=== PATIENT | male | born 1945 | race Caucasian/White ===

== ENCOUNTER 2016-10-10 16:40 | Observation (INO) | payer MEDICARE ==
[2016-10-10] MEDS ORDERED: HYDROmorphone 1 MG/ML SYRINGE IVP STA ×2 (18:30→21:13)
[2016-10-10] MEDS ORDERED: SODIUM CHLORIDE 0.9% 1,000 ML IV ONE ×2 (18:30→21:13)
[2016-10-10] MEDS ORDERED: ONDANSETRON 4 MG/2 ML VIAL IVP STA ×2 (18:30→21:13)
--- NOTE | 2016-10-10 18:30 | ED Physician Documentation ---
PD HPI ABD PAIN - Stated complaint Stated Complaint: ABD PAIN - Chief complaint Chief Complaint: Abd Pain - History obtained from History obtained from: Patient - History of Present Illness Timing - onset: Today Timing - duration: Days (1) Timing - details: Gradual onset, Still present Quality: Cramping, Aching, Fullness/distended Location: Periumbilical, Other (upper abd) Radiation: No: Chest, Lower back, Left flank, Right flank Improved by: Laying still Worsened by: Eating, Moving, Palpation. No: Breathing Associated symptoms: Fever, Nausea. No: Vomiting, Diarrhea, Dysuria Similar symptoms before: Has not had sx before Recently seen: Not recently seen Review of Systems Constitutional: reports: Fever (this afternoon), Chills Nose: denies: Rhinorrhea / runny nose, Congestion Throat: denies: Sore throat Cardiac: reports: Pedal edema (chronic mild). denies: Chest pain / pressure, Palpitations, Calf pain Respiratory: denies: Dyspnea, Cough, Wheezing GI: reports: Abdominal Pain, Nausea. denies: Vomiting, Constipation, Diarrhea : denies: Dysuria, Frequency Skin: denies: Rash, Lesions Neurologic: reports: Generalized weakness. denies: Focal weakness, Numbness Endocrine: denies: Weight loss, Easy bruising / bleeding Immunocompromised: denies: Immunocompromised PD PAST MEDICAL HISTORY - Past Medical History Cardiovascular: None, Hypertension Respiratory: None Neuro: None Endocrine/Autoimmune: None GI: Other (no diverticulitis) - Past Surgical History General: Cholecystectomy, Appendectomy - Present Medications Home Medications: Ambulatory Orders Medication Instructions Recorded Confirmed Aspirin 81 mg DAILY 10/10/16 10/10/16 Atorvastatin [Lipitor] 10 mg DAILY 10/10/16 10/10/16 Clonazepam 1 - 2 tab QPM 10/10/16 10/10/16 Fluoxetine HCl 40 mg DAILY 10/10/16 10/10/16 Primidone 250 mg BID 10/10/16 10/10/16 Ropinirole HCl 1 mg QPM 10/10/16 10/10/16 Valsartan/Hydrochlorothiazide 1 tab DAILY 10/10/16 10/10/16 [Valsartan-Hctz 160-25 mg Tab] amLODIPine [Norvasc] 10 mg DAILY 10/10/16 10/10/16 buPROPion [Wellbutrin Sr] 150 mg BID 10/10/16 10/10/16 - Allergies Allergies/Adverse Reactions: Allergies Allergy/AdvReac Type Severity Reaction Status Date / Time No Known Drug Allergies Allergy Verified 10/10/16 18:51 PD ED PE NORMAL - Vitals Vital signs reviewed: Yes - General General: Alert and oriented X 3, Well developed/nourished, Other (appears uncomfortable, with distended abdomen) - HEENT HEENT: PERRL (nonicteric), Ears normal, Moist mucous membranes, Pharynx benign - Neck Neck: Supple, no meningeal sign, No adenopathy - Cardiac Cardiac: RRR, No murmur - Respiratory Respiratory: Clear bilaterally - Abdomen Abdomen: No organomegaly, Other (distended abdomen with general tenderness upper abdomen middle most but also left and right. Lower abd not tender. Bowel sounds hyperactive. No shifting dullness. ) - Male Male : Deferred - Rectal Rectal: Deferred - Back Back: No CVA TTP - Derm Derm: Normal color, Warm and dry - Extremities Extremities: No tenderness to palpate, Normal ROM s pain - Neuro Neuro: Alert and oriented X 3, No motor deficit, Normal speech - Psych Psych: Normal mood, Normal affect Results - Vitals Vitals: Vital Signs - 24 hr 10/10/16 10/10/16 10/10/16 16:53 19:19 21:09 Temperature 39.3 C H Heart Rate 81 64 62 Respiratory 18 18 18 Rate Blood Pressure 151/76 H 135/66 H 139/56 H O2 Saturation 92 93 95 10/10/16 21:15 Temperature 37.1 C Heart Rate Respiratory Rate Blood Pressure O2 Saturation Oxygen O2 Source Room air - Labs Labs: Laboratory Tests 10/10/16 10/10/16 10/10/16 18:45 18:45 19:15 WBC 7.0 RBC 4.35 L Hgb 13.1 L Hct 38.3 L MCV 88.1 MCH 30.3 MCHC 34.3 RDW 14.0 Plt Count 172 MPV 7.7 Neut # 5.3 Lymph # 0.9 L [place] # 0.8 Eos # 0.0 Baso # 0.0 Absolute Nucleated RBC 0.02 Nucleated RBCs 0.2 Sodium 138 Potassium 3.4 L Chloride 101 Carbon Dioxide 27 Anion Gap 10.0 BUN 19 Creatinine 1.0 Estimated GFR (MDRD) 73 L Glucose 101 H Lactic Acid 1.2 Calcium 8.3 L Magnesium 1.6 L Total Bilirubin 0.5 AST 21 ALT 35 Alkaline Phosphatase 45 Total Protein 7.2 Albumin 3.7 Globulin 3.5 Albumin/Globulin Ratio 1.1 Lipase 21 L Urine Color Urine Clarity Urine pH Ur Specific [place] Urine Protein Urine Glucose (UA) Urine Ketones Urine Occult Blood Urine Nitrite Urine Bilirubin Urine Urobilinogen Ur Leukocyte Esterase Ur Microscopic Review Urine Culture Comments 10/10/16 19:30 WBC RBC Hgb Hct MCV MCH MCHC RDW Plt Count MPV Neut # Lymph # [place] # Eos # Baso # Absolute Nucleated RBC Nucleated RBCs Sodium Potassium Chloride Carbon Dioxide Anion Gap BUN Creatinine Estimated GFR (MDRD) Glucose Lactic Acid Calcium Magnesium Total Bilirubin AST ALT Alkaline Phosphatase Total Protein Albumin Globulin Albumin/Globulin Ratio Lipase Urine Color YELLOW Urine Clarity CLEAR Urine pH 6.0 Ur Specific [place] 1.025 Urine Protein TRACE Urine Glucose (UA) NEGATIVE Urine Ketones NEGATIVE Urine Occult Blood TRACE-LYSE Urine Nitrite NEGATIVE Urine Bilirubin NEGATIVE Urine Urobilinogen 0.2 (NORMAL) Ur Leukocyte Esterase NEGATIVE Ur Microscopic Review NOT INDICATED Urine Culture Comments NOT INDICATED - Rads (name of study) abd CT Radiology: Prelim report reviewed (nonspecific A/F levels. Renal mass noted.), EMP read contemporaneously (presume the renal mass is incidental to current symptoms, but will need further evaluation. ) PD MEDICAL DECISION MAKING - ED course Complexity details: reviewed results, re-evaluated patient (still having upper abd pain, tenderness, distension. Not obvious cause. ), considered differential (symptoms seem c/w bowel obstruction. Will give IV fluids/meds, adn get CT. Consider perforated viscus, ischemic bowel, volvulus, etc. ), d/w patient, d/w network systems consultant (Dr. Mccoy, who will see patient in ED and collaborate with Dr. Damian, hospitlaist.) Departure - Departure Disposition: ED Place in Observation Clinical Impression: Abdominal pain Qualifiers: Abdominal location: upper abdomen, unspecified Qualified Code(s): R10.10 - Upper abdominal pain, unspecified Fever Qualifiers: Fever type: unspecified Qualified Code(s): R50.9 - Fever, unspecified Condition: Stable Record reviewed to determine appropriate education?: Yes Discharge Date/Time: 10/10/16 22:13
[2016-10-10] MEDS ORDERED: ACETAMINOPHEN 1,000 MG/100 ML 100 ML IV STA (18:32)
[2016-10-10] MEDS ORDERED: ACETAMINOPHEN 1,000 MG/100 ML 100 ML IV ONE (18:53)
[2016-10-10] MEDS ORDERED: ONDANSETRON 4 MG/2 ML VIAL ONE ×2 (18:53→21:16)
[2016-10-10] MEDS ORDERED: HYDROmorphone 1 MG/ML SYRINGE ONE ×2 (18:53→21:16)
[2016-10-10 19:00] LABS: BASOPHILS % (AUTO) 0.5 %; EOSINOPHILS % (AUTO) 0.3 %; HCT - HEMATOCRIT 38.3 % (42.0-52.0); HGB - HEMOGLOBIN 13.1 g/dL (14.0-18.0); LYMPHOCYTES # (AUTO) 0.9 10^3/uL (1.5-3.5); LYMPHOCYTES % (AUTO) 12.8 %; MEAN CORPUSCULAR HEMOGLOBIN 30.3 pg (27.0-31.0); MEAN CORPUSCULAR HGB CONC 34.3 g/dL (32.0-36.0); MEAN CORPUSCULAR VOLUME 88.1 fL (80.0-94.0); MEAN PLATELET VOLUME 7.7 fL (7.4-11.4); MONOCYTES # (AUTO) 0.8 10^3/uL (0.0-1.0); MONOCYTES % (AUTO) 10.8 %; NEUTROPHILS # (AUTO) 5.3 10^3/uL (1.5-6.6); NEUTROPHILS % (AUTO) 75.6 %; NUCLEATED RED BLOOD CELLS AUTO 0.2 /100WBC; RED BLOOD COUNT 4.35 10^6/uL (4.70-6.10)
[2016-10-10 19:08] LABS: ALBUMIN/GLOBULIN RATIO 1.1 (1.0-2.2); BILIRUBIN,TOTAL 0.5 mg/dL (0.2-1.0); CALCIUM 8.3 mg/dL (8.5-10.3); MAGNESIUM 1.6 mg/dL (1.7-2.8); POTASSIUM 3.4 mmol/L (3.5-5.0); TOTAL PROTEIN 7.2 g/dL (6.7-8.2)
[2016-10-10 19:48] LABS: BILIRUBIN,URINE NEGATIVE (NEGATIVE)
[2016-10-10 19:49] LABS: UA CHARGE (STRIP ONLY) YES; UR CULTURE IF IND NOT INDICATED
[2016-10-10] MEDS ORDERED: IOPAMIDOL-300 100 ML VIAL IVP ONE (20:27)
--- NOTE | 2016-10-10 20:59 | CT Preliminary Report ---
Exam: CT Abdomen/Pelvis W/ IMPRESSION: 1. Small left renal mass suspicious for neoplasm. MR scan may be helpful. 2. Nonspecific small bowel fluid and air-fluid level pattern. 3. Other incidental or chronic findings. [facility] SITE ID: [id number]
--- NOTE | 2016-10-10 21:02 | CT Report ---
EXAM: CT ABDOMEN AND PELVIS EXAM DATE: 10/10/2016 08:30 PM. CLINICAL HISTORY: Upper abd pain and distension. COMPARISONS: None. TECHNIQUE: Routine helical CT imaging was performed through the abdomen and pelvis. IV contrast: 100 cc Isovue-300. Enteric contrast: No. Reconstructions: Coronal and sagittal. In accordance with CT protocol optimization, one or more of the following dose reduction techniques w ere utilized for this exam: automated exposure control, adjustment of mA and/or KV based on patient s ize, or use of iterative reconstructive technique. FINDINGS: Lung Bases: Unremarkable. Liver: Normal. No masses. Gallbladder/Bile Ducts: Surgically absent. No ductal dilation. Spleen: Normal. Pancreas: Normal. Adrenal Glands: Normal. Kidneys: Multiple small cysts. No stone or hydronephrosis. 3.2 cm left lower pole solid mass. Peritoneal Cavity/Bowel: Nondilated fluid-filled small bowel loops with scattered air-fluid levels. O therwise unremarkable. No free fluid, free air or adenopathy. No masses or acute inflammatory process . Unremarkable region of appendix. Pelvic Organs: Normal. The bladder and visualized pelvic organs are within normal limits. Vasculature: No aneurysms or other significant abnormality. Bones: Degenerative changes. Other: None. IMPRESSION: 1. Small left renal mass suspicious for neoplasm. MR scan may be helpful. 2. Nonspecific small bowel fluid and air-fluid level pattern. 3. Other incidental or chronic findings. [facility] Referring Provider Line: [phone] SITE ID: [id number]
[2016-10-10] MEDS ORDERED: ACETAMINOPHEN 325 MG TABLET PO PRN (21:38)
[2016-10-10] MEDS ORDERED: PROCHLORPERAZINE 10 MG/2 ML VIAL IVP PRN (21:38)
[2016-10-10] MEDS ORDERED: oxyCODONE 5 MG TABLET PO PRN ×2 (21:38)
[2016-10-10] MEDS ORDERED: HYDROmorphone 1 MG/ML SYRINGE IVP PRN (21:38)
[2016-10-10] MEDS ORDERED: ONDANSETRON 4 MG/2 ML VIAL IVP PRN (21:38)
[2016-10-10] MEDS ORDERED: SODIUM CHLORIDE FLUSH 0.9% 10 ML SYRINGE IVP PRN (21:38)
[2016-10-10] MEDS: SODIUM CHLORIDE FLUSH 0.9% 10 ML SYRINGE IVP SCH (23:33)
--- NOTE | 2016-10-10 23:34 | HISTORY & PHYSICAL EXAMINATION ---
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 The patient states he was in his normal state of health when he woke up this morning he states he took his grandkids this cool at around 8:30 in the morning and when he returned home he states he just did not feel right. He states he was supposed to go to the gym with his but then became very nauseated and started having pain across his mid abdomen he states that he had to lay down. His daughter sunday Hamlin he took 2 pills and then states he had chills and bad but was able to fall asleep he workup 3 hours later states he felt very fatigued continued to have nausea and abdominal pain and could not get out of his bed. He states he laid around in bed for another few hours and finally his family convinced him to go see his primary care physician as he just continued to have abdominal pain. The patient states that the abdominal pain is sharp and located in the mid abdomen it goes across the midline but does not radiate to the back and has remained constant since this morning. The patient also admits to fevers and chills. He admits to associated nausea but has not vomited. The patient did have a normal bowel movement last night and has not had any diarrhea through the day. He states that his abdomen feels distended and he does not feel as though he has passed gas and definitely has not had a bowel movement today. He states his appetite has been poor but he does feel thirsty.The patient denies eating any new or abnormal foods yesterday. He states that his family had the same dinner nobody else was sick. He denies any sick contacts. The patient went to see his primary care physician at around 4:30 PM and was found to be febrile with a temperature of over 39C he was also diaphoretic and on examination had a distended abdomen that was tender therefore the patient's PCP sent the patient to the emergency department. On presentation to the emergency department the patient was febrile with a temperature of 39.3 he appeared to be diaphoretic and was having some chills. The patient's vital signs were otherwise normal. The patient underwent routine lab work which did reveal slight hypo-kalemia and a slight hypomagnesemia but his lactic acid was normal and renal function appear to be normal. The patient did not have any leukocytosis or any significant anemia he did have a slight lymphopenia. Patient's UA was negative for any blood or rbc's. A CT scan of the patient's abdomen was ordered and it revealed a small left renal mass suspicious for neoplasm and nonspecific small bowel fluid and air fluid level pattern. The emergency room physician was concerned for possible early bowel obstruction and called the surgeon agricultural produce commission agent Dr. Mccoy who recommended the patient be admitted by the hospitalist service and that he would consult. The surgeon did ask for an MRCP for the morning and for the patient to receive IV fluids and be kept n.p.o. overnight. Review of Systems - Constitutional Constitutional: reports: Fatigue, Fever, Chills, Malaise, Weakness, Poor appetite, Diaphoresis. denies: Night sweats, Weight gain, Weight loss - Eyes Eyes: denies: Pain, Irritation, Amaurosis, Blurred vision, Spots in vision, Field loss, Vision loss, Dipolpia, Corrective lenses, Other - Ears, Nose & Throat Ears, Nose & Throat: denies: Ear pain, Hearing loss, Hearing aids, Tinnitus, Vertigo, Nasal pain, Nasal discharge, Nosebleeds, Nasal obstruction, Nasal congestion, Postnasal drainage, Dentures, Sore throat, Hoarseness, Mouth lesions , Bleeding gums, Dental decay, Dental pain, Other - Cardiovascular Cariovascular: denies: Irregular heart rate, Palpitations, Chest pain, Edema, Lightheadedness, Syncope, Exertional dyspnea, Decr. exercise tolerance, Orthopnea, Other - Respiratory Respiratory: denies: Cough, Sputum production, Wheezing, Snoring, Hemoptysis, Orthopnea, SOB at rest, SOB with exertion, Apnea, Stridor, Pleuritic pain, Other - Gastrointestinal Gastrointestinal: reports: Abdominal pain, Abdominal distention, Nausea, Bloating, Poor appetite. denies: Constipation, Diarrhea, Black stools, Bloody stools, Vomiting, Coffee grounds emesis - Genitourinary Genitourinary: denies: Dysuria, Frequency, Urgency, Hematuria, Incontinence, Flank pain, Nocturia, Urethral discharge, Sexual dysfunction, Other - Musculoskeletal Musculoskeletal: denies: Muscle pain, Back pain, Muscle aches, Stiffness, Limited range of motion, Muscle weakness, Gout, Joint pain, Joint swelling, Other - Integumentary Integumentary: denies: Rash, Pruritis, Lesions, Dryness, Lumps, Acne, Pigment changes, Nail changes, Hair changes, Other - Neurological Neurological: reports: General weakness, Headache. denies: Focal weakness, Dizziness, Numbness, Memory problems, Pre-existing deficit, Abnormal gait, Seizures, Slurred speech - Psychiatric Psychiatric: denies: Depression, Anxiety - Endocrine Endocrine: denies: Polyuria, Polydypsia, Polyphagia, Intolerance to cold, Intolerance to heat - Hematologic/Lymphatic Hematologic/Lymphatic: denies: Anemia, Bruising, Petechiae, Lymphadenopathy, Recurrent infections History - Past Medical History Cardiovascular: reports: Hypertension, High cholesterol Respiratory: reports: CPAP use (Obstructive Sleep Apnea) Neuro: reports: None Endocrine/Autoimmune: reports: None GI: reports: Other (Colangitis, umbilical hernia repair) : reports: Retention (With implanted bladder stimulator device) Musculoskeletal: reports: Osteoarthritis (Bilateral knee replacements), Other ( History of cervical radiculopathy s/p cervical fusions) Derm: reports: Other (History of melanoma s/p excision ) - Past Surgical History General: reports: Cholecystectomy, Appendectomy, Other (Hernia Repair) Ortho: reports: Knee replacement (Bilateral) Neuro: reports: Other (Cervical Fusion and implanted bladder stimulator) Derm: reports: Skin cancer surgery (Melanoma removal) - Family & Social History Family History: Mother: Alive and Well (Severe Dementia), Cancer (Male Breast Ca (Dad), Renal cell Ca (Mom)), Father: , CAD (3 MIs), Cancer Living arrangement: At home Living Situation: With spouse/s.o., With family Social History Notes: Has been living on [facility] for the last 6 months. He lives with his , daughter, son-in-law and grandkids. Originally from [facility] but had been living in [facility] until 6 months ago when he moved appear due to his son-in-law being transferred to [facility]. - Substance History Use: Uses substance without health or social issues: NONE Abuse: Recurrent use of substance despite neg consequences: NONE Dependence: Experiences withdrawal or developed tolerances: NONE Tobacco Details: Cigarettes (History of tobacco use quit 5 years ago previously smoked one pack per day for over 40 years) - POLST Patient has POLST: No POLST Status: Full Code Meds/Allgy - Home Medications Home Medications: Ambulatory Orders Medication Instructions Recorded Confirmed Aspirin 81 mg DAILY 10/10/16 10/10/16 Atorvastatin [Lipitor] 10 mg DAILY 10/10/16 10/10/16 Clonazepam 1 - 2 tab QPM 10/10/16 10/10/16 Fluoxetine HCl 40 mg DAILY 10/10/16 10/10/16 Primidone 250 mg BID 10/10/16 10/10/16 Ropinirole HCl 1 mg QPM 10/10/16 10/10/16 Valsartan/Hydrochlorothiazide 1 tab DAILY 10/10/16 10/10/16 [Valsartan-Hctz 160-25 mg Tab] amLODIPine [Norvasc] 10 mg DAILY 10/10/16 10/10/16 buPROPion [Wellbutrin Sr] 150 mg BID 10/10/16 10/10/16 - Allergies Allergies/Adverse Reactions: Allergies Allergy/AdvReac Type Severity Reaction Status Date / Time No Known Drug Allergies Allergy Verified 10/10/16 18:51 Exam - Vital Signs Reviewed Vital Signs: Yes Vital Signs: Vital Signs x48h Temp Pulse Pulse Resp BP BP Pulse Ox 10/10/16 22:20 37.1 C 61 18 154/75 H 93 10/10/16 21:47 62 18 130/61 94 - Physical Exam General Appearance: positive: Alert, Mild distress (Abdominal pain and obvious distension), Other (Morbidly obese) Eyes Bilateral: positive: Normal inspection, PERRL, EOMI, No lid inflammation, Conjunctivae nml, No scleral icterus ENT: positive: ENT inspection nml, Pharynx nml, Dry mucous membranes. negative : Purulent nasal drainage, Pharyngeal erythema, Oral lesions Neck: positive: Nml inspection, Thyroid nml, No JVD, Trachea midline. negative : Thyromegaly, Lymphadenopathy (R), Lymphadenopathy (L) Respiratory: positive: Chest non-tender, No respiratory distress, Breath sounds nml. negative: Wheezes, Rales, Rhonchi Cardiovascular: positive: Regular rate & rhythm, No murmur, No gallop Peripheral Pulses: positive: 2+ Abdomen: positive: Tenderness (mid to upper abdomen across the midline on both sides), Abnml bowel sounds (hyperactive), Other (Distended, no peritoneal signs. No umbilicus. Scar in right upper quadrant.). negative: Guarding, Rebound, Hepatomegaly, Splenomegaly, Mass Back: positive: Nml inspection. negative: CVA tenderness (R), CVA tenderness (L ) Skin: positive: Color nml, No rash, Warm, Diaphoresis. negative: Cyanosis, Pallor, Skin rash Extremities: positive: Non-tender, Full ROM, Nml appearance, No pedal edema, Other (Scars on bilateral knees from knee replacements) Neurologic/Psychiatric: positive: Oriented x3, CN's nml (2-12), Motor nml, Sensation nml, Mood/affect nml Conclusion/Plan - Problem List (1) Abdominal pain Conclusion/Plan: Patient's abdominal pain started acutely this morning with associated nausea and fevers. Pain located in the mid abdomen and radiates across the abdomen but not to the back. Labs normal aside from low potassium, low magnesium and lymphopenia. CT abdomen showed nonspecific small bowel air-fluid and air fluid level pattern. Given patient's acute presentation with fever nausea and a leukopenia patient most likely has viral gastroenteritis now ever given abdominal distention CT finding of air-fluid level pattern and previous history of surgery this could be an early bowel obstruction. Patient also states the pain is very similar to when he had common bile duct stone with cholangitis in the past. Patient's LFTs are normal and he does not have right upper quadrant tenderness no rebound. Less likely to be a common bile duct stone however surgery is requesting MRCP. Plan: N.p.o. IV fluids Electrolytes replacement Pain control with IV Dilaudid IV antiemetics Surgical consult MRCP in the morning however patient does have neuro transmitter device will need to to verify if MRCP can still be done with clinical dietetic technician in morning Consider NG tube if vomiting persists Monitor in observation Qualifiers: Abdominal location: upper abdomen, unspecified Qualified Code(s): R10.10 - Upper abdominal pain, unspecified (2) Renal mass, left Conclusion/Plan: Small left renal mass found incidentally on CT scan suspicious for neoplasm Patient has family history of renal cell carcinoma Plan: Since patient is going to get MRCP will also include MRI of the kidney Will need outpatient followup with his PCP Patient counseled and advised about the findings (3) Hypokalemia Conclusion/Plan: Likely secondary to nausea Will replace Monitor electrolytes (4) Hypomagnesemia Conclusion/Plan: Likely secondary to nausea and dehydration Replace Monitor Magnesium (5) Hypertension Conclusion/Plan: Blood pressure slightly elevated on presentation likely secondary to pain Continue her blood pressure medication Monitor blood pressure Pain control Qualifiers: Hypertension type: essential hypertension Qualified Code(s): I10 - Essential (primary) hypertension (6) Hyperlipidemia Conclusion/Plan: stable Continue home dose of Lipitor (7) GREGORIA on CPAP Conclusion/Plan: patient left CPAP at home Will give supplemental oxygen at night Patient advised to bring CPAP tomorrow (8) Prophylactic use of low molecular weight heparin for venous thromboembolism Conclusion/Plan: Place on Lovenox - Lab Results Lab results reviewed: Yes Fish Bones: 10/10/16 18:45 10/10/16 18:45 - Diagnostic Imaging Results Diagnostic Imaging Results: positive: Final report reviewed - Other Other Results/Comments: Abdominal CT: Impression 1 small left renal mass suspicious for neoplasm. MR scan may be helpful. 2 nonspecific small bowel fluid and air-fluid level pattern. 3 other incidental or chronic findings. Issues/Core Measures - Anticipated LOS Anticipated Stay Length: Less than 2 midnights - DVT/VTE - Prophylaxis VTE/DVT Prophylaxis med ordered at admit?: Yes
[2016-10-11] MEDS ORDERED: MAGNESIUM SULFATE 2 GRAM 50 ML IV SCH (00:08)
[2016-10-11] MEDS: NS W/20 MEQ KCL 1,000 ML IV SCH ×2 (02:09→12:49)
[2016-10-11 06:01] LABS: BASOPHILS % (AUTO) 0.6 %; EOSINOPHILS # (AUTO) 0.1 10^3/uL (0.0-0.7); EOSINOPHILS % (AUTO) 1.3 %; HCT - HEMATOCRIT 35.6 % (42.0-52.0); HGB - HEMOGLOBIN 12.3 g/dL (14.0-18.0); LYMPHOCYTES # (AUTO) 1.5 10^3/uL (1.5-3.5); LYMPHOCYTES % (AUTO) 27.5 %; MEAN CORPUSCULAR HEMOGLOBIN 30.4 pg (27.0-31.0); MEAN CORPUSCULAR HGB CONC 34.4 g/dL (32.0-36.0); MEAN CORPUSCULAR VOLUME 88.4 fL (80.0-94.0); MEAN PLATELET VOLUME 7.8 fL (7.4-11.4); MONOCYTES # (AUTO) 0.8 10^3/uL (0.0-1.0); MONOCYTES % (AUTO) 14.7 %; NEUTROPHILS % (AUTO) 55.9 %; NUCLEATED RED BLOOD CELLS AUTO 0.1 /100WBC; RED BLOOD COUNT 4.03 10^6/uL (4.70-6.10); RED CELL DISTRIBUTION WIDTH 14.1 % (12.0-15.0); UNCORRECTED WHITE BLOOD COUNT 5.4 x10^3/uL; WHITE BLOOD COUNT 5.4 x10^3/uL (4.8-10.8)
[2016-10-11 06:12] LABS: BILIRUBIN,TOTAL 0.5 mg/dL (0.2-1.0); CALCIUM 7.8 mg/dL (8.5-10.3); CREATININE 0.8 mg/dL (0.6-1.2); MAGNESIUM 2.1 mg/dL (1.7-2.8); PHOSPHORUS 2.8 mg/dL (2.5-4.6); POTASSIUM 3.3 mmol/L (3.5-5.0); TOTAL PROTEIN 6.2 g/dL (6.7-8.2)
[2016-10-11] MEDS: SODIUM CHLORIDE FLUSH 0.9% 10 ML SYRINGE IVP SCH ×2 (06:40→08:22)
[2016-10-11] MEDS ORDERED: PANTOPRAZOLE 40 MG TABLET PO SCH (07:00)
[2016-10-11] MEDS ORDERED: ENOXAPARIN 40 MG/0.4 ML SYRINGE SUBQ SCH (09:00)
[2016-10-11] MEDS ORDERED: PRIMIDONE 50 MG TABLET PO SCH (09:00)
[2016-10-11] MEDS ORDERED: amLODIPine 5 MG TABLET PO SCH (09:00)
[2016-10-11] MEDS ORDERED: ASPIRIN CHEW 81 MG TABLET PO SCH (09:00)
[2016-10-11] MEDS ORDERED: hydroCHLOROthiazide 25 MG TABLET PO SCH (09:00)
[2016-10-11] MEDS ORDERED: ATORVASTATIN 10 MG TABLET PO SCH (09:00)
[2016-10-11] MEDS ORDERED: HYDROCHLOROTHIAZIDE PO SCH (09:00)
[2016-10-11] MEDS ORDERED: VALSARTAN PO SCH (09:00)
[2016-10-11] MEDS ORDERED: buPROPion SR 150 MG TABLET PO SCH (09:00)
[2016-10-11] MEDS ORDERED: LOSARTAN 50 MG TABLET PO SCH (09:00)
[2016-10-11] MEDS ORDERED: POLYETHYLENE GLYCOL 3350 17 GM PACKET PO SCH (09:00)
[2016-10-11] MEDS ORDERED: FLUoxetine 10 MG CAPSULE PO SCH (09:00)
--- NOTE | 2016-10-11 13:06 | PROVIDER PROGRESS NOTE ---
Assessment/Plan - Problem List (1) Abdominal pain Qualifiers: Abdominal location: upper abdomen, unspecified Qualified Code(s): R10.10 - Upper abdominal pain, unspecified Assessment/Plan: 71 yo male with abdominal pain history of CBD stones, having BM's, possible primary stone former vs sbo Unable to have MRCP due to stimulator. Being transferred to [place] for further workup and treatment. Pt noted to have half eaten sandwich at 12:30pm, instructed to not eat any more and that he shouldn't be eating at all. - Current Meds Current Meds: Current Medications Generic Name Dose Route Start Last Admin Trade Name Freq PRN Reason Stop Dose Admin Acetaminophen 650 mg 10/10/16 21:38 10/11/16 06:38 Tylenol PO 650 mg Q4HR PRN Administration Pain 1 to 4 Amlodipine Besylate 10 mg 10/11/16 09:00 10/11/16 08:22 Norvasc PO 10 mg DAILY SHANNON Administration Aspirin 81 mg 10/11/16 09:00 10/11/16 08:21 [place] Aspirin PO 81 mg DAILY SHANNON Administration Atorvastatin Calcium 10 mg 10/11/16 09:00 10/11/16 08:21 Lipitor PO 10 mg DAILY SHANNON Administration Bupropion HCl 150 mg 10/11/16 09:00 10/11/16 08:21 Wellbutrin Sr PO 150 mg BID SHANNON Administration Enoxaparin Sodium 40 mg 10/11/16 09:00 10/11/16 08:22 Lovenox SUBQ 40 mg DAILY SHANNON Administration Fluoxetine HCl 40 mg 10/11/16 09:00 10/11/16 08:21 Prozac PO 40 mg DAILY SHANNON Administration Hydrochlorothiazide 25 mg 10/11/16 09:00 10/11/16 08:22 Hydrodiuril PO 25 mg DAILY SHANNON Administration Potassium Chloride/Sodium Chloride 1,000 mls @ 100 mls/hr 10/10/16 22:00 12:49 Normal Saline 0.9% W/20 Meq Kcl IV 100 mls/hr .Q10H SHANNON Administration Losartan Potassium 50 mg 10/11/16 09:00 10/11/16 08:22 Cozaar PO 50 mg DAILY SHANNON Administration Oxycodone HCl 5 mg 10/10/16 21:38 10/11/16 02:15 Roxicodone PO 5 mg Q4HR PRN Administration Pain 5 to 7 Oxycodone HCl 10 mg 10/10/16 21:38 10/11/16 10:24 Roxicodone PO 10 mg Q4HR PRN Administration Pain 8 to 10 Pantoprazole Sodium 40 mg 10/11/16 07:00 10/11/16 06:38 Protonix PO 40 mg QDAC SHANNON Administration Polyethylene Glycol 17 gm 10/11/16 09:00 10/11/16 08:22 Miralax PO 17 gm DAILY SHANNON Administration Primidone 250 mg 10/11/16 09:00 10/11/16 08:21 Mysoline PO 250 mg BID SHANNON Administration Sodium Chloride 10 ml 10/10/16 22:00 10/11/16 08:22 Normal Saline Flush 0.9% IVP Not Given Q8HR SHANNON - Lab Result Fish Bone Diagrams: 10/11/16 05:15 10/11/16 05:15 Subjective - Subjective Patient Reports: Abdominal Pain (Patient seen & examined at bedside. Patient stated has had normal BM last night and ate some food and then had loose stool. Continues to have abdominal pain. Instructed not to eat while in hospital. no other complaints) Nursing Reports: Pain Objective Vital Signs: Vital Signs - 24 hr 10/10/16 10/10/16 10/11/16 21:47 22:20 05:10 Temperature 37.1 C 37.0 C Heart Rate 62 Heart Rate [ Brachial] Heart Rate [ 61 61 Radial] Respiratory 18 18 18 Rate Blood Pressure 130/61 Blood Pressure 154/75 H 154/90 H [Left Brachial artery] O2 Saturation 94 93 97 10/11/16 10/11/16 08:44 12:45 Temperature 36.7 C 36.8 C Heart Rate Heart Rate [ 61 61 Brachial] Heart Rate [ Radial] Respiratory 19 17 Rate Blood Pressure Blood Pressure 162/80 H 158/80 H [Left Brachial artery] O2 Saturation 98 95 Oxygen O2 Source Room air I&O (Last 24 Hrs): Intake and Output Totals x24h 10/09/16 10/10/16 10/11/16 23:59 23:59 23:59 Intake Total 797 Output Total 650 Balance 147 General: Alert, Oriented x3 HEENT: PERRLA Cardiovascular: Regular rate Respiratory: Breath sounds nml Abdomen: Normal bowel sounds (+BS, Distended obese abdomen, soft, TTP in epigastric. No rebound or guarding, non-peritoneal abdomen) - Results Results: Laboratory Results WBC 5.4 x10^3/uL (4.8-10.8) 10/11/16 05:15 RBC 4.03 10^6/uL (4.70-6.10) L 10/11/16 05:15 Hgb 12.3 g/dL (14.0-18.0) L 10/11/16 05:15 Hct 35.6 % (42.0-52.0) L 10/11/16 05:15 MCV 88.4 fL (80.0-94.0) 10/11/16 05:15 MCH 30.4 pg (27.0-31.0) 10/11/16 05:15 MCHC 34.4 g/dL (32.0-36.0) 10/11/16 05:15 RDW 14.1 % (12.0-15.0) 10/11/16 05:15 Plt Count 145 10^3/uL (130-450) 10/11/16 05:15 MPV 7.8 fL (7.4-11.4) 10/11/16 05:15 Neut # 3.0 10^3/uL (1.5-6.6) 10/11/16 05:15 Lymph # 1.5 10^3/uL (1.5-3.5) 10/11/16 05:15 [place] # 0.8 10^3/uL (0.0-1.0) 10/11/16 05:15 Eos # 0.1 10^3/uL (0.0-0.7) 10/11/16 05:15 Baso # 0.0 10^3/uL (0.0-0.1) 10/11/16 05:15 Absolute Nucleated RBC 0.00 x10^3/uL 10/11/16 05:15 Nucleated RBCs 0.1 /100WBC 10/11/16 05:15 Sodium 139 mmol/L (135-145) 10/11/16 05:15 Potassium 3.3 mmol/L (3.5-5.0) L 10/11/16 05:15 Chloride 106 mmol/L (101-111) 10/11/16 05:15 Carbon Dioxide 27 mmol/L (21-32) 10/11/16 05:15 Anion Gap 6.0 (6-13) 10/11/16 05:15 BUN 15 mg/dL (6-20) 10/11/16 05:15 Creatinine 0.8 mg/dL (0.6-1.2) 10/11/16 05:15 Estimated GFR (MDRD) 95 (>89) 10/11/16 05:15 Glucose 119 mg/dL (70-100) H 10/11/16 05:15 Lactic Acid 0.9 mmol/L (0.5-2.2) 10/11/16 05:15 Calcium 7.8 mg/dL (8.5-10.3) L 10/11/16 05:15 Phosphorus 2.8 mg/dL (2.5-4.6) 10/11/16 05:15 Magnesium 2.1 mg/dL (1.7-2.8) 10/11/16 05:15 Total Bilirubin 0.5 mg/dL (0.2-1.0) 10/11/16 05:15 AST 23 IU/L (10-42) 10/11/16 05:15 ALT 32 IU/L (10-60) 10/11/16 05:15 Alkaline Phosphatase 37 IU/L (42-121) L 10/11/16 05:15 Total Protein 6.2 g/dL (6.7-8.2) L 10/11/16 05:15 Albumin 3.1 g/dL (3.2-5.5) L 10/11/16 05:15 Globulin 3.1 g/dL (2.1-4.2) 10/11/16 05:15 Albumin/Globulin Ratio 1.0 (1.0-2.2) 10/11/16 05:15 Lipase 21 U/L (22-51) L 10/10/16 18:45 Urine Color YELLOW 10/10/16 19:30 Urine Clarity CLEAR (CLEAR) 10/10/16 19:30 Urine pH 6.0 PH (5.0-7.5) 10/10/16 19:30 Ur Specific [place] 1.025 (1.002-1.030) 10/10/16 19:30 Urine Protein TRACE mg/dL (NEGATIVE) 10/10/16 19:30 Urine Glucose (UA) NEGATIVE mg/dL (NEGATIVE) 10/10/16 19:30 Urine Ketones NEGATIVE mg/dL (NEGATIVE) 10/10/16 19:30 Urine Occult Blood TRACE-LYSE (NEGATIVE) 10/10/16 19:30 Urine Nitrite NEGATIVE (NEGATIVE) 10/10/16 19:30 Urine Bilirubin NEGATIVE (NEGATIVE) 10/10/16 19:30 Urine Urobilinogen 0.2 (NORMAL) E.U./dL (NORMAL) 10/10/16 19:30 Ur Leukocyte Esterase NEGATIVE (NEGATIVE) 10/10/16 19:30 Ur Microscopic Review NOT INDICATED 10/10/16 19:30 Urine Culture Comments NOT INDICATED 10/10/16 19:30
[2016-10-11 16:19] VITALS: BP 162/80
[2016-10-11] MEDS ORDERED: rOPINIRole 1 MG TABLET PO SCH (21:00)
== END 2016-10-11 16:00 | disposition short-term general hospital (02) ==
LOC: ED 16:40 → MS 21:38
PROVIDERS: ADMIT Internal Medicine; ATTEND Specialist
DX: R10.10 Upper abdominal pain, unspecified (principal); R50.9 Fever, unspecified; N28.89 Other specified disorders of kidney and ureter; E87.6 Hypokalemia; E83.42 Hypomagnesemia; I10 Essential (primary) hypertension; G47.33 Obstructive sleep apnea (adult) (pediatric); Z87.891 Personal history of nicotine dependence; E78.5 Hyperlipidemia, unspecified; E66.01 Morbid (severe) obesity due to excess calories; Z68.41 Body mass index [BMI] 40.0-44.9, adult; R33.9 Retention of urine, unspecified; Z98.1 Arthrodesis status; Z96.653 Presence of artificial knee joint, bilateral; Z85.820 Personal history of malignant melanoma of skin; Z79.82 Long term (current) use of aspirin; Z79.899 Other long term (current) drug therapy
CPT/HCPCS: 36415; 74177; 80053; 81003; 83605; 83690; 83735; 84100; 85025; 96361; 96365; 96372; 96375; 96376; 99283; 99284; A9270; G0378; J0131; J1170; J1650; Q9967; 81001; 87086; 96374

== ENCOUNTER 2016-10-11 16:00 | Outpatient (CLI) | payer MEDICARE | END 2016-10-11 16:01 | disposition short-term general hospital (02) | LOC: EMS 16:00 | PROVIDERS: ATTEND Surgery | DX: R10.9 Unspecified abdominal pain (principal) | CPT/HCPCS: A0425; A0428 ==

== ENCOUNTER 2017-01-09 20:01 | Emergency (ER) | payer MEDICARE ==
--- NOTE | 2017-01-09 21:22 | ED Physician Documentation ---
History of Present Illness - Stated complaint Stated Complaint: MIXED UP MEDS/SLEEPY - Chief complaint Chief Complaint: General - History obtained from History obtained from: Patient, Family (son) - Additonal information Additional information: The patient is a 71-year-old male who accidentally took four 100 mg trazodone tablets, thinking they were ibuprofen. He also took his regular nighttime medications, including Klonopin, Wellbutrin, atorvastatin. He is concerned about the possibility of drug interactions. He reports sleepiness and mild headache. He denies nausea or vomiting. Review of Systems Constitutional: denies: Fever Ears: denies: Tinnitus/ringing Nose: denies: Congestion Throat: denies: Sore throat Cardiac: denies: Chest pain / pressure Respiratory: denies: Dyspnea GI: denies: Abdominal Pain, Vomiting Neurologic: reports: Headache (mild) PD PAST MEDICAL HISTORY - Past Medical History Past Medical History: Yes Cardiovascular: None, Hypertension Respiratory: None Neuro: None Endocrine/Autoimmune: None GI: Other : Retention Psych: Depression, Panic attacks Musculoskeletal: Osteoarthritis, Other Derm: Other - Past Surgical History Past Surgical History: Yes General: Cholecystectomy, Appendectomy Ortho: Knee replacement Neuro: Other Derm: Skin cancer surgery - Present Medications Home Medications: Ambulatory Orders Medication Instructions Recorded Confirmed Aspirin 81 mg PO DAILY 10/10/16 01/09/17 Clonazepam 0.5 - 1 mg PO QPM 10/10/16 01/09/17 Fluoxetine HCl 40 mg PO DAILY 10/10/16 01/09/17 Primidone 250 mg PO BID 10/10/16 01/09/17 Valsartan/Hydrochlorothiazide 1 tab PO DAILY 10/10/16 01/09/17 [Valsartan-Hctz 160-25 mg Tab] amLODIPine [Norvasc] 10 mg PO DAILY 10/10/16 01/09/17 buPROPion [Wellbutrin Sr] 150 mg PO BID 10/10/16 01/09/17 - Allergies Allergies/Adverse Reactions: Allergies Allergy/AdvReac Type Severity Reaction Status Date / Time No Known Drug Allergies Allergy Verified 01/09/17 20:09 - Social History Does the pt smoke?: No Smoking Status: Never smoker Does the pt drink ETOH?: No Does the pt have substance abuse?: No - Immunizations Immunizations are current?: Yes - POLST Patient has POLST: No POLST Status: Full Code PD ED PE NORMAL - Vitals Vital signs reviewed: Yes (Borderline hypertension) - General General: Alert and oriented X 3, Other (Overweight.) - HEENT HEENT: Atraumatic, Moist mucous membranes, Pharynx benign - Cardiac Cardiac: RRR - Respiratory Respiratory: No respiratory distress, Clear bilaterally - Abdomen Abdomen: Soft, Non tender, Other (Rotund abdomen.) - Derm Derm: No rash - Neuro Neuro: Alert and oriented X 3, No motor deficit, Normal speech Results - Vitals Vitals: Vital Signs - 24 hr 01/09/17 01/09/17 20:09 21:41 Temperature 36.5 C 36.3 C L Heart Rate 78 60 Respiratory 16 18 Rate Blood Pressure 142/83 H 101/52 L O2 Saturation 97 97 Oxygen O2 Source Room air PD MEDICAL DECISION MAKING - ED course Complexity details: considered differential, d/w patient, d/w family ED course: The patient's presentation is significant for an accidental ingestion of overdose of trazodone. Review of potential drug interactions reveals no significant interactions of great clinical concern. Sleepiness is an expected reaction to 400 mg dose of trazodone. However this is not a toxic dose in an adult. I discussed this with the patient and his son. I discussed with them potentially worrisome signs or symptoms that should prompt reevaluation in the emergency department. Departure - Departure Disposition: 01 Home, Self Care Clinical Impression: Accidental drug ingestion Qualifiers: Encounter type: initial encounter Qualified Code(s): T50.901A - Poisoning by unspecified drugs, medicaments and biological substances, accidental ( unintentional), initial encounter Condition: Stable Instructions: ED Overdose Accidental Follow-Up: Brady Tolbert MD [Primary Care Provider] - Comments: Drink plenty of fluids. The drug ingestion is nontoxic, but will make you sleepy. Return to the emergency department if you develop persistent vomiting, or otherwise worsening symptoms. Discharge Date/Time: 01/09/17 21:41
[2017-01-09 21:42] VITALS: BP 101/52
== END 2017-01-09 21:41 | disposition home or self-care (01) ==
LOC: ED 20:01
DX: T43.211A Poisoning by selective serotonin and norepinephrine reuptake inhibitors, accidental (unintentional), initial encounter (principal); R53.83 Other fatigue; Y92.019 Unspecified place in single-family (private) house as the place of occurrence of the external cause; I10 Essential (primary) hypertension; M19.90 Unspecified osteoarthritis, unspecified site; F17.200 Nicotine dependence, unspecified, uncomplicated
CPT/HCPCS: 99282; 99283

== ENCOUNTER 2017-01-20 16:40 | Emergency (ER) | payer MEDICARE ==
[2017-01-20] MEDS ORDERED: HYDROmorphone 1 MG/ML SYRINGE IVP STA ×2 (17:40→19:58)
--- NOTE | 2017-01-20 17:43 | ED Physician Documentation ---
History of Present Illness - Stated complaint Stated Complaint: L SIDE PAIN - Chief complaint Chief Complaint: Abd Pain - History obtained from History obtained from: Patient, Family - History of Present Illness Timing: How many weeks ago (1) Pain level max: 9 Pain level now: 7 Improved by: nothing Worsened by: moving - Additonal information Additional information: Patient is a 71-year-old male who presents to the emergency department with left flank pain for the past week. Has a history of renal cell carcinoma that is status post cryoablation in October at [facility]. States is scheduled for a follow-up 5 months after the procedure. For the past week has had increasing left flank pain. Does not recall any trauma. No fevers. No urinary changes. Does have a history of a kidney stone when he was young. Review of Systems Ten Systems: 10 systems reviewed and negative Constitutional: denies: Fever, Chills Ears: denies: Ear pain Nose: denies: Rhinorrhea / runny nose, Congestion Throat: denies: Sore throat Cardiac: denies: Chest pain / pressure Respiratory: denies: Cough GI: denies: Abdominal Pain, Nausea, Vomiting, Diarrhea : denies: Dysuria, Frequency, Hesitancy, Incontinent, Hematuria Skin: denies: Rash Musculoskeletal: denies: Neck pain, Back pain Neurologic: denies: Headache PD PAST MEDICAL HISTORY - Past Medical History Past Medical History: Yes Cardiovascular: None, Hypertension Respiratory: None Neuro: None Endocrine/Autoimmune: None GI: Other : Retention Psych: Depression, Panic attacks Musculoskeletal: Osteoarthritis, Other Derm: Other Other Past Medical History: renal cancer - Past Surgical History Past Surgical History: Yes General: Cholecystectomy, Appendectomy Ortho: Knee replacement Neuro: Other Derm: Skin cancer surgery - Present Medications Home Medications: Ambulatory Orders Medication Instructions Recorded Confirmed Aspirin 81 mg PO DAILY 10/10/16 01/20/17 Clonazepam 0.5 - 1 mg PO QPM 10/10/16 01/20/17 Fluoxetine HCl 40 mg PO DAILY 10/10/16 01/20/17 Primidone 250 mg PO BID 10/10/16 01/20/17 Valsartan/Hydrochlorothiazide 1 tab PO DAILY 10/10/16 01/20/17 [Valsartan-Hctz 160-25 mg Tab] amLODIPine [Norvasc] 10 mg PO DAILY 10/10/16 01/20/17 buPROPion [Wellbutrin Sr] 150 mg PO BID 10/10/16 01/20/17 Atorvastatin [Lipitor] 10 mg PO DAILY 01/20/17 01/20/17 Cyclobenzaprine [Flexeril] 10 mg PO TID PRN #20 tablet 01/20/17 Oxycodone HCl/Acetaminophen 1 - 2 each PO Q6H PRN #14 tablet 01/20/17 [Percocet 5-325 mg Tablet] - Allergies Allergies/Adverse Reactions: Allergies Allergy/AdvReac Type Severity Reaction Status Date / Time No Known Drug Allergies Allergy Verified 01/20/17 17:52 - Social History Does the pt smoke?: No Smoking Status: Never smoker Does the pt drink ETOH?: No Does the pt have substance abuse?: No - Immunizations Immunizations are current?: Yes - POLST Patient has POLST: No POLST Status: Full Code PD ED PE NORMAL - Vitals Vital signs reviewed: Yes - General General: Alert and oriented X 3, No acute distress - HEENT HEENT: Moist mucous membranes - Neck Neck: Supple, no meningeal sign - Cardiac Cardiac: RRR, Strong equal pulses - Respiratory Respiratory: No respiratory distress, Clear bilaterally - Abdomen Abdomen: Soft, Non tender, Non distended - Back Back: No spinal TTP, Other (TTP along the posterior 11th rib. No crepitus. No ecchymosis. No rash.) - Derm Derm: Warm and dry - Neuro Neuro: Alert and oriented X 3 - Psych Psych: Normal mood, Normal affect Results - Vitals Vitals: Vital Signs - 24 hr 01/20/17 01/20/17 01/20/17 16:59 18:20 20:11 Temperature 36.6 C Heart Rate 67 62 80 Respiratory 20 15 16 Rate Blood Pressure 158/83 H 146/88 H 118/75 O2 Saturation 96 95 96 Oxygen O2 Source Room air - Labs Labs: Laboratory Tests 01/20/17 01/20/17 01/20/17 17:25 17:35 17:35 WBC 9.9 RBC 4.69 L Hgb 14.4 Hct 41.6 L MCV 88.7 MCH 30.8 MCHC 34.7 RDW 13.6 Plt Count 264 MPV 7.7 Neut # 6.6 Lymph # 2.3 [place] # 0.8 Eos # 0.1 Baso # 0.1 Absolute Nucleated RBC 0.00 Nucleated RBCs 0.0 Sodium 140 Potassium 4.3 Chloride 101 Carbon Dioxide 29 Anion Gap 10.0 BUN 22 H Creatinine 1.1 Estimated GFR (MDRD) 66 L Glucose 98 Calcium 9.5 Total Bilirubin 0.2 AST 28 ALT 39 Alkaline Phosphatase 51 Total Protein 9.0 H Albumin 4.6 Globulin 4.4 H Albumin/Globulin Ratio 1.0 Lipase 30 Urine Color YELLOW Urine Clarity CLEAR Urine pH 6.0 Ur Specific [place] >=1.030 H Urine Protein NEGATIVE Urine Glucose (UA) NEGATIVE Urine Ketones NEGATIVE Urine Occult Blood TRACE-INTA Urine Nitrite NEGATIVE Urine Bilirubin NEGATIVE Urine Urobilinogen 0.2 (NORMAL) Ur Leukocyte Esterase NEGATIVE Ur Microscopic Review NOT INDICATED Urine Culture Comments NOT INDICATED - Rads (name of study) CT abdomen and pelvis Radiology: Prelim report reviewed, EMP read contemporaneously, See rad report ( There is a predominantly fluid attenuation, cystic lesion at the lower pole of the left kidney with adjacent perinephric stranding most likely representing post ablation related changes for previously described neoplasm. Clinical correlation recommended to exclude superimposed infection. There is no evidence of urolithiasis or hydronephrosis. 2. Diverticulosis, no diverticulitis or other acute inflammatory process. 3. Small hiatal hernia. ) PD MEDICAL DECISION MAKING - ED course Complexity details: reviewed results, re-evaluated patient, considered differential, d/w patient, d/w family ED course: Patient is a 71-year-old gentleman with left flank pain. Pain did not respond well to Dilaudid and Valium and was still having significant pain, mainly with movement. Appears very muscular in nature. 2% lidocaine with epinephrine was infiltrated at the site, approximately 3 cc which greatly relieved his pain. No acute findings on CT scan other than some stranding around the left kidney, likely postprocedural. No evidence of infection clinically. No evidence of hemorrhage. Patient is very well-appearing, nontoxic. Will have him follow-up closely with his PCP for further evaluation and care. Patient counseled regarding signs and symptoms for which I believe and urgent re-evaluation would be necessary. Patient with good understanding of and agreement to plan and is comfortable going home at this time This document was made in part using voice recognition software. While efforts are made to proofread this document, sound alike and grammatical errors may occur. Departure - Departure Disposition: Home, Self Care Clinical Impression: Flank pain Condition: Good Instructions: ED Neck Back Pain General Follow-Up: Brady Tolbert MD [Primary Care Provider] - Within 3 Days Prescriptions: Cyclobenzaprine [Flexeril] 10 mg PO TID PRN #20 tablet PRN Reason: Spasms Oxycodone HCl/Acetaminophen [Percocet 5-325 mg Tablet] 1 - 2 each PO Q6H PRN # 14 tablet PRN Reason: pain Comments: Return if you worsen. Follow up with Dr. Tolbert for further care. Do not drink alcohol or drive while on narcotic pain medicine. Note that many narcotic pain relievers also contain tylenol/acetaminophen. Please ensure that your total dose of acetaminophen from all sources does not exceed 3 grams (3000mg) per day. You may constipated on this medication, take a stool softener such as "Colace" twice a day while you are on it. Also recommend a [id number] laxative such as senna or MiraLAX any day that you do not have a bowel movement. If you received narcotic pain medication in the emergency department, do not drive or operate machinery for the next 24 hours. Discharge Date/Time: 01/20/17 21:03
[2017-01-20] MEDS ORDERED: HYDROmorphone 1 MG/ML SYRINGE ONE ×2 (17:47→20:06)
[2017-01-20] MEDS ORDERED: SODIUM CHLORIDE FLUSH 0.9% 10 ML SYRINGE IVP ONE (17:47)
[2017-01-20 17:50] LABS: BASOPHILS # (AUTO) 0.1 10^3/uL (0.0-0.1); EOSINOPHILS # (AUTO) 0.1 10^3/uL (0.0-0.7); EOSINOPHILS % (AUTO) 1.3 %; HCT - HEMATOCRIT 41.6 % (42.0-52.0); HGB - HEMOGLOBIN 14.4 g/dL (14.0-18.0); LYMPHOCYTES # (AUTO) 2.3 10^3/uL (1.5-3.5); LYMPHOCYTES % (AUTO) 23.6 %; MEAN CORPUSCULAR HEMOGLOBIN 30.8 pg (27.0-31.0); MEAN CORPUSCULAR HGB CONC 34.7 g/dL (32.0-36.0); MEAN CORPUSCULAR VOLUME 88.7 fL (80.0-94.0); MEAN PLATELET VOLUME 7.7 fL (7.4-11.4); MONOCYTES # (AUTO) 0.8 10^3/uL (0.0-1.0); NEUTROPHILS # (AUTO) 6.6 10^3/uL (1.5-6.6); NEUTROPHILS % (AUTO) 66.1 %; RED BLOOD COUNT 4.69 10^6/uL (4.70-6.10); RED CELL DISTRIBUTION WIDTH 13.6 % (12.0-15.0); UNCORRECTED WHITE BLOOD COUNT 9.9 x10^3/uL; WHITE BLOOD COUNT 9.9 x10^3/uL (4.8-10.8)
[2017-01-20 17:50] LABS: BILIRUBIN,URINE NEGATIVE (NEGATIVE)
[2017-01-20 17:52] LABS: UA CHARGE (STRIP ONLY) YES; UR CULTURE IF IND NOT INDICATED
[2017-01-20 18:03] LABS: BILIRUBIN,TOTAL 0.2 mg/dL (0.2-1.0); CALCIUM 9.5 mg/dL (8.5-10.3); CREATININE 1.1 mg/dL (0.6-1.2); POTASSIUM 4.3 mmol/L (3.5-5.0)
[2017-01-20] MEDS ORDERED: diazePAM INJ 5 MG/ML SYRINGE IVP STA (18:21)
[2017-01-20] MEDS ORDERED: diazePAM INJ 5 MG/ML SYRINGE ONE (18:34)
[2017-01-20] MEDS ORDERED: IOPAMIDOL-300 100 ML VIAL IVP ONE (19:01)
--- NOTE | 2017-01-20 19:40 | CT Preliminary Report ---
Exam: CT Abdomen/Pelvis W/ IMPRESSION: 1. There is a predominantly fluid attenuation, cystic lesion at the lower pole of the left kidney wit h adjacent perinephric stranding most likely representing post ablation related changes for previousl y described neoplasm. Clinical correlation recommended to exclude superimposed infection. There is no evidence of urolithiasis or hydronephrosis. 2. Diverticulosis, no diverticulitis or other acute inflammatory process. 3. Small hiatal hernia. [facility] SITE ID: [id number]
--- NOTE | 2017-01-20 19:43 | CT Report ---
EXAM: CT ABDOMEN AND PELVIS EXAM DATE: 01/20/2017 06:58 PM. CLINICAL HISTORY: L flank pain, h/o renal cell CA. COMPARISONS: 10/10/2016 CT. TECHNIQUE: Routine helical CT imaging was performed through the abdomen and pelvis. IV contrast: 100 mL Isovue-300. Enteric contrast: No. Reconstructions: Coronal and sagittal. In accordance with CT protocol optimization, one or more of the following dose reduction techniques w ere utilized for this exam: automated exposure control, adjustment of mA and/or KV based on patient s ize, or use of iterative reconstructive technique. FINDINGS: Lung Bases: Unremarkable. Small hiatal hernia. Liver: Normal. No masses. Gallbladder/Bile Ducts: The gallbladder has been removed. No bile duct dilatation. Spleen: Normal. Pancreas: Normal. Adrenal Glands: Normal. Kidneys: There is a 4.2 x 2.3 x 2.9 cm cystic lesion at the site of the previously seen lower pole le ft renal neoplasm. Adjacent perinephric stranding is present. There are additional smaller cysts bila terally which have a benign appearance. No evidence of renal stone or hydronephrosis. There is no ret roperitoneal lymphadenopathy. Peritoneal Cavity/Bowel: Diverticulosis without diverticulitis. No bowel obstruction, free air or flu id collections. No evidence of appendicitis. Pelvic Organs: Normal. The bladder and visualized pelvic organs are within normal limits. Vasculature: No aneurysms or other significant abnormality. Bones: Multilevel lumbar spine disk related degenerative changes. No acute bony abnormality. Other: None. IMPRESSION: 1. There is a predominantly fluid attenuation, cystic lesion at the lower pole of the left kidney wit h adjacent perinephric stranding most likely representing post ablation related changes for previousl y described neoplasm. Clinical correlation recommended to exclude superimposed infection. There is no evidence of urolithiasis or hydronephrosis. 2. Diverticulosis, no diverticulitis or other acute inflammatory process. 3. Small hiatal hernia. [facility] Referring Provider Line: [phone] SITE ID: [id number]
[2017-01-20] MEDS ORDERED: oxyCOD/ACETAMIN 5 MG/325 MG TABLET PO STA (19:57)
[2017-01-20] MEDS ORDERED: oxyCOD/ACETAMIN 5 MG/325 MG TABLET PO ONE (20:07)
[2017-01-20 20:12] VITALS: BP 118/75
== END 2017-01-20 21:03 | disposition home or self-care (01) ==
LOC: ED 16:40
DX: R10.32 Left lower quadrant pain (principal); Z85.528 Personal history of other malignant neoplasm of kidney; I10 Essential (primary) hypertension; M19.90 Unspecified osteoarthritis, unspecified site; Z79.82 Long term (current) use of aspirin
CPT/HCPCS: 36415; 74177; 80053; 81003; 83690; 85025; 96374; 96375; 96376; 99283; 99284; A9270; J1170; Q9967; 81001; 87086